=== PATIENT | female | born 1940 | race Caucasian/White ===

== ENCOUNTER 2016-10-09 19:15 | Emergency (ER) | payer MEDICARE ==
[2016-10-09 19:53] LABS: Hematocrit 34 % (35-47); Mean Corpuscular HGB Conc 32 g/dl (31-36); Mean Corpuscular Hemoglobin 26 pg (27-31); Mean Corpuscular Volume 80 fL (80-97); Mean Platelet Volume 10 um3 (7.4-10.4); Red Blood Count 4.28 10^6/ul (4.0-5.4); Red Cell Distribution Width 16 % (10.5-15); White Blood Count 9.7 10^3/ul (3.5-10.8)
--- NOTE | 2016-10-09 19:53 | ED ---
John Baldwin Anna, scribed for Joao Epps MD on 10/09/16 at 1937 . Abdominal Pain/Female - HPI Summary HPI Summary: Patient is a 76 y/o female coming to [facility] presenting with the gradual onset of constant abdominal pain that began one week ago. The pain is described as of severity 6/10. She has not had a good BM during that time. She reports she has not eaten much lately. Denies fever, nausea, vomiting. She talked to the pharmacist about constipation and took Milk of Magnesia, which did not alleviate the symptoms. The patients history is significant for an intestinal bleed. She had regular colonoscopies up until one year ago, when her doctor advised her that she was okay to stop. Patient medications were reviewed this visit. 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 Verified 01/11/15 18:15 Breathing/I tching Penicillins [PCN] Allergy Hives/Diff. Verified 01/11/15 18:15 Breathing/I tching Tetracycline Allergy Hives/Diff. Verified 01/11/15 18:15 Breathing/I tching Tramadol Allergy Unknown Verified 01/11/15 18:15 Reaction Details PMH/Surg Hx/FS Hx/Imm Hx Endocrine/Hematology History: Reports: Hx Diabetes Cardiovascular History: Reports: Hx Coronary Artery Disease, Hx Hypercholesterolemia, Hx Hypertension Denies: Hx Congestive Heart Failure, Hx Pacemaker/ICD Respiratory History: Reports: Hx Asthma GI History: Reports: Hx Gastrointestinal Bleed Musculoskeletal History: Reports: Other Musculoskeletal History - LUMBAR SPINAL STENOSIS-surgery on 12/25/14 Sensory History: Reports: Hx Cataracts - surg to remove, Hx Contacts or Glasses Denies: Hx Hearing Aid Opthamlomology History: Reports: Hx Cataracts - surg to remove, Hx Contacts or Glasses Psychiatric History: Denies: Hx Panic Disorder - Surgical History Surgery Procedure, Year, and Place: triple bypass. appendix. cervical spine surgery. hysterectomy. bilateral cataract. retinal- pt says she has a buckle (done in [place]? more than 16 years ago). lumbar surgery 12/25/14 Hx Anesthesia Reactions: No Infectious Disease History: No Infectious Disease History: Denies: Traveled Outside the [place] in Last 30 Days - Family History Known Family History: Positive: Cardiac Disease, Hypertension - Social History Occupation: Retired Lives: With Family Alcohol Use: None Substance Use Type: Reports: None Smoking Status (MU): Former Smoker Type: Cigarettes Amount Used/How Often: 1PPD 10 YRS Have You Smoked in the Last Year: No Review of Systems Negative: Fever Gastrointestinal: Other - constipation Positive: Abdominal Pain. Negative: Vomiting, Nausea All Other Systems Reviewed And Are Negative: Yes Physical Exam Triage Information Reviewed: Yes Vital Signs On Initial Exam: Initial Vitals Temp Pulse Resp BP Pulse Ox 98.4 F 65 18 186/58 94 10/09/16 19:18 10/09/16 19:18 10/09/16 19:18 10/09/16 19:18 10/09/16 19:18 Vital Signs Reviewed: Yes Appearance: Positive: Well-Appearing, Pain Distress - mild discomfort Skin: Positive: Warm Head/Face: Positive: Normal Head/Face Inspection Eyes: Positive: CAESAR ENT: Positive: Hearing grossly normal Neck: Positive: Supple Respiratory/Lung Sounds: Positive: Breath Sounds Present Cardiovascular: Positive: Normal, RRR Abdomen Description: Positive: Soft, Other: - mild diffuse lower abd tenderness Bowel Sounds: Positive: Present Musculoskeletal: Positive: Strength/ROM Intact Neurological: Positive: Alert, Oriented to Person Place, Time Psychiatric: Positive: Affect/Mood Appropriate Diagnostics - Vital Signs Vital Signs Temp Pulse Resp BP Pulse Ox 10/09/16 19:29 98.7 F 61 17 188/55 98 10/09/16 19:18 98.4 F 65 18 186/58 94 - Laboratory Result Diagrams: 10/09/16 19:45 10/09/16 19:45 Lab Statement: Any lab studies that have been ordered have been reviewed, and results considered in the medical decision making process. - CT CT abd/pel CT Interpretation: Positive (See Comments) CT Interpretation Completed By: Radiologist - 1. CT findings are most consistent with sigmoid diverticulitis. Particularly if the patient has never had colonoscopy direct visualization after symptoms have subsided is recommended to confirm the diagnosis and rule out underlying malignancy. 2. Advanced calcified atherosclerosis involving the abdominal aorta, branch vessels and bilateral common iliac arteries. Please correspond to any signs or symptoms of pelvic or lower extremity claudication. 3. Additional chronic, degenerative and iatrogenic findings unlikely to be directly related to the patient's current presentation as described in the report. Re-Evaluation - Re-Evaluation First Eval Change: Improved Abdominal Pain Fem Course/Dx - Course Course Of Treatment: Patient is a 76 y/o female coming to [facility] presenting with the gradual onset of constant abdominal pain that began one week ago. The pain is described as of severity 6/10. She has not had a good BM during that time. Patient declined analgesics in the ED course. Labs reveal a c-reactive protein of 12.62, hbg of 11.0. UA reveals specific gravity of 1.003, straw color, clear appearance, negative for blood or proteins. CT abd/pel reveals results consistent with diverticulitis. Patient was given Levaquin and Flagyl in the ED course. Patient will be discharged home with recommended follow-up with GI. - Diagnoses Provider Diagnoses: Diverticulitis Discharge - Discharge Plan Condition: Stable Disposition: HOME Prescriptions: Levofloxacin TAB* [Levaquin TAB*] 500 mg PO DAILY #7 tab Metronidazole [Flagyl 500 MG TAB] 500 mg PO TID #20 tab Patient Education Materials: Metronidazole (By mouth), Levofloxacin (By mouth) , Diverticulitis (ED), Diverticulitis Diet (ED) Referrals: Sage Simental MD [Medical Doctor] - Eemry Otero MD [Primary Care Provider] - Additional Instructions: Follow up with GI doctor within 48 hours. Return to the Emergency Department for new or worsening symptoms. The documentation as recorded by the John streeter Anna accurately reflects the service I personally performed and the decisions made by , Joao Epps MD.
[2016-10-09 20:08] LABS: Albumin 3.8 g/dL (3.2-5.2); C Reactive Protein 12.62 mg/L (< 5.00); Calcium 8.9 mg/dL (8.6-10.3); EGFR African American 80.1 (>60); EGFR Non-African American 62.3 (>60); Globulin 3.3 g/dL (2-4); Potassium 3.6 mmol/L (3.5-5.0); Total Bilirubin 0.3 mg/dL (0.2-1.0); Total Protein 7.1 g/dL (6.4-8.9)
[2016-10-09 20:54] LABS: Urine Bilirubin Negative (Negative); Urine Glucose Negative (Negative); Urine Nitrite Negative (Negative)
[2016-10-09] MEDS ORDERED: Iodixanol* (CONTRAST) 320 MG/ML 100 ML SDV IV ONE (21:22)
--- NOTE | 2016-10-09 22:46 | RAD ---
CLINICAL HISTORY: Pelvic pain. Relevant surgical history includes appendectomy, hysterectomy and "lumbar surgery". COMPARISON: CTA chest abdomen pelvis dated January 11, 2015 TECHNIQUE: Contrast enhanced CT examination of the abdomen and pelvis from the lung bases through the initial tuberosities. The patient received 71 mL Visipaque 320 intravenously prior to imaging.The patient received oral contrast as well prior to imaging. FINDINGS: VISUALIZED LUNG BASES: The visualized lung bases are grossly clear. There is no pleural effusion. ABDOMEN AND PELVIS: In the right lobe liver there is a 2 mm hypodensity that cannot be characterized further. The liver is otherwise hypoattenuating relative to the spleen. The spleen, pancreas and adrenal glands are grossly normal in appearance. The gallbladder is normal. There is a large fluid density cyst in the right kidney. Otherwise the kidneys are normal in appearance without focal mass, calcification or signs of hydronephrosis. There are contrast has progressed as far as the sigmoid colon. The small and large bowel are not distended. Consistent with the patient's surgical history the appendix is not seen. There are innumerable diverticula throughout the sigmoid colon. The sigmoid colon exhibits mild wall thickening. There is a mild degree of pericolonic infiltration of the fat surrounding the sigmoid colon. There is no gross retroperitoneal or mesenteric lymphadenopathy. The uterus is surgically absent. There is coarse atherosclerotic calcification of the abdominal aorta extending into the bilateral common iliac arteries. Coarse calcification is seen at the origins of the celiac trunk, superior mesenteric artery and bilateral renal arteries. Degenerative changes of the lower thoracic and lumbar spine includes loss of intervertebral disc height and marginal osteophyte formation. There is grade 1 L4 over L5 anterolisthesis due to bilateral pars interarticularis defect.There are no sinister bone lesions. IMPRESSION: 1. CT findings are most consistent with sigmoid diverticulitis. Particularly if the patient has never had colonoscopy direct visualization after symptoms have subsided is recommended to confirm the diagnosis and rule out underlying malignancy. 2. Advanced calcified atherosclerosis involving the abdominal aorta, branch vessels and bilateral common iliac arteries. Please correspond to any signs or symptoms of pelvic or lower extremity claudication. 3. Additional chronic, degenerative and iatrogenic findings unlikely to be directly related to the patient's current presentation as described in the report.
[2016-10-09] MEDS ORDERED: Levofloxacin 500 MG IVPREMIX(* 500 MG/100 ML BAG IVPB ONE (22:54)
[2016-10-09] MEDS ORDERED: metroNIDAZOLE IV 500 MG/100ML* 500 MG/100 ML BAG IVPB ONE (22:55)
[2016-10-10 01:47] VITALS: BP 170/55
== END 2016-10-10 01:45 | disposition home or self-care (01) ==
LOC: ED 19:15
DX: K57.92 Diverticulitis of intestine, part unspecified, without perforation or abscess without bleeding (principal); K59.00 Constipation, unspecified; Z87.891 Personal history of nicotine dependence; R10.9 Unspecified abdominal pain
CPT/HCPCS: 36415; 74177; 80053; 81003; 83605; 83690; 83735; 85025; 86140; 96365; 99282; J1956; Q9967